=== PATIENT | female | born 1980 | race Caucasian/White ===

== ENCOUNTER 2023-03-05 13:57 | Emergency (ER) | payer BC, SELFPAY ==
[2023-03-05] VITALS (21 sets, daily range): BP systolic 118–154; BP diastolic 72–103; PULSE 84–102; RESP 9–27; TEMP 36.3; O2SAT 92–100
--- NOTE | ~2023-03-05 | CT_ITS ---
EXAMINATION: CTA chest abdomen DATE: 03/05/2023 17:06 INDICATION: Right-sided chest pain radiating to the arm TECHNIQUE: Computed tomographic angiography (CTA) of the chest and abdomen was performed with 100 mL Omnipque-350 intravenous contrast. Maximum intensity projection 3D-reconstructions of the aorta and o ther arteries were constructed by the technologist on a separate workstation. The dose-length product (DLP) was 1217.88 mGy-cm. Automated exposure control and iterative reconstruction technique were emp loyed. COMPARISON: None. FINDINGS: CHEST CTA: No aneurysm or dissection. The visualized great vessels are unremarkable. Streak artifact from right upper extremity injection of contrast slightly obscures visualization of the right subclavian artery which appears normal. There is mild atelectasis of the lingula. The lungs are free of focal airspace opacities. No pleural effusion or pneumothorax. No pathologically enlarged thoracic lymph nodes are identified. The heart s ize is normal. ABDOMEN CTA: No aneurysm or dissection. The celiac axis, superior mesenteric artery, and inferior mesenteric arter y are normal at their origins. There are single renal arteries. There is a 10 mm lesion of the liver dome which appears to demonstrate peripheral nodular enhancement , consistent with a hemangioma. The spleen, pancreas, and adrenal glands are normal. There are change s of cholecystectomy. The kidneys are unremarkable. There are no pathologically enlarged abdominal ly mph nodes. No free intraperitoneal gas or evidence of bowel obstruction. There is a small umbilical h ernia containing fat. IMPRESSION: 1. No CT correlate for the patient's symptoms. Reviewed, dictated and finalized at location F.
--- NOTE | ~2023-03-05 | XR_ITS ---
EXAMINATION: XR chest 2V 03/05/2023 15:08 INDICATION: Right rib pain PROCEDURE: 2 view chest COMPARISON: No prior studies for comparison. FINDINGS: Left basilar atelectasis/scarring. No focal pneumonia, edema, pleural effusion or pneumotho rax. The cardiomediastinal silhouette is within normal limits. There are no pleural effusions. Ther e is no pneumothorax suspected. IMPRESSION: 1: Left basilar atelectasis/scarring. Reviewed, dictated and finalized at location B.
--- NOTE | 2023-03-05 14:07 | ECG_ITS ---
Measurements Intervals [place] Rate: 87 P: 45 GA: 141 QRS: 56 QRSD: 79 T: 46 QT: 366 QTc: 442 Interpretive Statements SINUS RHYTHM NORMAL ECG NO PREVIOUS ECG AVAILABLE FOR COMPARISON Electronically Signed On 03-05-2023 14:15:10 CDT by Blaine Catalan D.O.
[2023-03-05 14:24] LABS: Basophils Absolute Auto 0.1 K/mm3 (0.0-0.1); Basophils Percent Auto 0.8 % (0.2-1.2); Eosinophils Absolute Auto 0.1 K/mm3 (0-0.3); Hematocrit 41.9 % (37.0-47.0); Hemoglobin 14.2 g/dL (12.0-15.0); Immature Granulocyte Absolute 0.04 K/mm3 (0.00-0.031); Immature Granulocyte Percent A 0.4 % (0-0.5); Lymphocytes Absolute Auto 3.58 K/mm3 (0.9-3.2); Lymphocytes Percent Auto 37.3 % (18.3-44.2); Mean Corpuscular HGB Conc 33.9 g/dl (32-36); Mean Corpuscular Hemoglobin 32.2 pg (26-34); Mean Platelet Volume 11.1 fl (7.4-10.4); Monocytes Absolute Auto 0.6 K/mm3 (0.1-0.6); Monocytes Percent Auto 5.7 % (2.6-8.5); Neutrophils Absolute Auto 5.3 K/mm3 (1.3-6.7); Neutrophils Percent Auto 54.8 % (45.5-73.1); Platelet Count Result 245 k/mm3 (150-375); Red Blood Count 4.41 M/mm3 (4.2-5.4); Red Cell Distribution Width 12.2 % (11.5-14.5); White Blood Count 9.6 K/mm3 (4.5-10.0)
[2023-03-05 14:34] LABS: Alanine Aminotransferase 17 U/L (6-35); Albumin Level 4.3 g/dL (3.5-5.1); Alkaline Phosphatase 62 U/L (38-126); Anion Gap 9 mmol/L (8-16); Aspartate Amino Transferase 21 U/L (14-36); Bilirubin,Total 0.5 mg/dL (0.2-1.3); Blood Urea Nitrogen 9 mg/dL (7-17); Calcium 8.5 mg/dL (8.4-10.2); Carbon Dioxide 19 mmol/L (22-30); Chloride 108 mmol/L (98-107); Estimated CRCL calculation 119 ml/min; Estimated Glomerular Filt Rate > 60; Glucose 86 mg/dL (65-110); Lipase 106 U/L (23-300); Potassium 3.7 mmol/L (3.4-5.0); Sodium 136 mmol/L (137-145)
[2023-03-05 14:35] LABS: Prothrombin Time 13.2 Seconds (11.1-14.7)
[2023-03-05 14:36] LABS: Partial Thromboplastin Time 27.3 SECONDS (22.3-36.8)
[2023-03-05 14:45] LABS: Troponin I < 0.012 ng/mL (0.000-0.034)
[2023-03-05 15:56] LABS: D Dimer 0.31 ug/mL (<0.48)
[2023-03-05 17:41] LABS: Troponin I < 0.012 ng/mL (0.000-0.034)
--- NOTE | 2023-03-05 18:12 | ED.CHESTPAIN ---
HPI - Chest Pain General Chief Complaint: Chest Pain Stated Complaint: chest pain Time Seen by Provider: 03/05/23 15:22 History of Present Illness HPI narrative: Patient presenting with right-sided chest pain that seems to go to her arm and shoulder, started about 1 day ago, she is pretty nervous about this because her mom when she was 46 of unknown causes, she is worried about a possible aneurysm. She had been seen at another hospital recently for headache and had been told that her CT showed chronic infarcts. Related Data Allergies Allergy/AdvReac Type Severity Reaction Status Date / Time citalopram [From Celexa] AdvReac Rash Verified 03/05/23 15:20 Review of Systems Review of Systems: CONST: No fever. HEENT: No sore throat C/V: Right-sided chest pain RESP: Mild chest pain with deep breaths GI: No abdominal pain : No dysuria. M/S: Right shoulder/arm pain SKIN: No rash. NEURO:/Tingling to right hand PSYCH: Anxiety Exam Narrative: EXAMINATION OF ORGAN SYSTEMS/BODY AREAS: Constitutional: Vital signs per nursing GENERAL: Slightly anxious and occasionally tearful HEAD: Normal with no signs of head trauma. EYES: EOMI, conjunctiva normal ENT: Hearing grossly intact LUNGS: Nonlabored breathing. HEART: [Regular rate and rhythm], slight tenderness to deep palpation to right chest ABD: [Soft], [nontender to palpation] EXT: Normal range of motion, normal radial and DP pulses bilaterally SKIN: [No rashes or lesions.] NEURO: [Alert and oriented x 3. No gross focal sensory or strength deficits.] PSYCH: Normal affect Course Vital Signs Vital signs: Vital Signs Temperature 97.4 F L 03/05/23 14:03 Pulse Rate 91 03/05/23 14:03 Respiratory Rate 18 03/05/23 14:03 Blood Pressure 134/88 03/05/23 14:03 Pulse Oximetry 98 03/05/23 14:03 Oxygen Delivery Room Air 03/05/23 14:03 Temperature 97.4 F L 03/05/23 14:03 Pulse Rate 88 03/05/23 18:31 Respiratory Rate 17 03/05/23 18:31 Blood Pressure 118/72 03/05/23 18:31 Pulse Oximetry 99 03/05/23 18:31 Oxygen Delivery Room Air 03/05/23 14:03 MDM - Chest Pain MDM Narrative Medical decision making narrative: ED COURSE AND MEDICAL DECISION MAKINF presenting with chest pain. EKG done in triage negative for acute ischemic changes. Cardiac workup is initiated. EKG: Performed in triage and interpreted by me. Normal sinus rhythm. Rate 87. Normal axis. IN normal. QRS duration normal. QTc normal. No pathologic Q waves. No ST segment elevation or depression to suggest acute ischemia. No RV strain pattern. HEART score is 0 with no acute ischemic changes on EKG and negative troponin making ACS unlikely. Wells low risk with negative PERC and d-dimer making PE unlikely. CXR negative for mediastinal widening but she is quite concerned about possible aneurysm given her mother's early so I will obtain a CTA. CTA chest/abd is negative for acute abnormality. HEART Score: 2. (Risk of major adverse cardiac events over 6 weeks: Score of 0-3 is low risk <2% ; Score of 4-6 is moderate risk ~12-15%; Score of 7-12 is high risk ~50%). CTA obtained does not show any acute abnormality or aneurysm/dissection; CTA head/neck from OSH reviewed and no acute abnormality or aneurysm/dissection either. I did discuss all findings with the patient. Second trop also neg. On repeat evaluation just prior to discharge, the patient is no acute distress. I had a long discussion with the patient and with shared decision making, she is comfortable with outpatient management. She was given clear return instructions by myself in person as well as on discharge paperwork. Lab Data 03/05/23 14:12 03/05/23 14:12 Labs: Lab Results 03/05/23 03/05/23 Range/Units 14:12 17:06 WBC 9.6 (4.5-10.0) K/mm3 RBC 4.41 (4.2-5.4) M/mm3 Hgb 14.2 (12.0-15.0) g/dL Hct 41.9 (37.0-47.0) % MCV 95.0 (80-100) fl MCH 32.2 (2
[2023-03-05] MEDS: KETOROLAC 15 MG/ML VIAL (*BKC) IV PUSH (18:31)
== END 2023-03-05 18:38 | disposition home or self-care (01) ==
PROVIDERS: Emergency Medicine; Nurse Practitioner Family; Emergency Provider Emergency Medicine; PCP Internal Medicine
DX: R07.89 Other chest pain (principal)
CPT/HCPCS: 36415; 71046; 71275; 74175; 80053; 81025; 83690; 84484; 85025; 85380; 85610; 85730; 93005; 96374; 99284; J1885; Q9967